=== PATIENT | female | born 2000 | race Caucasian/White ===

== ENCOUNTER → 2020-03-17 11:16 | Outpatient (BNVA) | payer OTHER, SELFPAY | PROVIDERS: Family Provider Nurse Practitioner Family; Visit Provider Nurse Practitioner Family | DX: Z11.59 Encounter for screening for other viral diseases (principal); J06.9 Acute upper respiratory infection, unspecified | CPT/HCPCS: 87635 ==

== ENCOUNTER → 2020-12-23 14:28 | Outpatient (BNVA) | payer OTHER, SELFPAY | PROVIDERS: Family Provider Nurse Practitioner Family; Visit Provider Registered Nurse | DX: Z02.1 Encounter for pre-employment examination (principal) | CPT/HCPCS: 80307 ==

== ENCOUNTER → 2021-07-23 11:20 | Outpatient (BNVA) | payer MEDICAID, SELFPAY | PROVIDERS: Family Provider Nurse Practitioner Family; Visit Provider Obstetrics & Gynecology | DX: Z34.90 Encounter for supervision of normal pregnancy, unspecified, unspecified trimester (principal) | CPT/HCPCS: 80307; 82950; 84315; 84443; 85025; 86592; 86762; 86803; 86850; 86900; 87086; 87340; 87491; 87591; 87661; 88175 ==

== ENCOUNTER → 2021-09-17 14:31 | Outpatient (BNVA) | payer BC, MEDICAID, SELFPAY | PROVIDERS: Family Provider Nurse Practitioner Family; Visit Provider Obstetrics & Gynecology | DX: O09.899 Supervision of other high risk pregnancies, unspecified trimester (principal) | CPT/HCPCS: 81000 ==

== ENCOUNTER → 2021-10-16 13:31 | Outpatient (BNVA) | payer BC, MEDICAID, SELFPAY | PROVIDERS: Family Provider Nurse Practitioner Family; Visit Provider Obstetrics & Gynecology | DX: O09.899 Supervision of other high risk pregnancies, unspecified trimester (principal) | CPT/HCPCS: 81000 ==

== ENCOUNTER → 2021-11-12 14:40 | Outpatient (BNVA) | payer BC, MEDICAID, SELFPAY | PROVIDERS: Family Provider Nurse Practitioner Family; Visit Provider Obstetrics & Gynecology | DX: O09.899 Supervision of other high risk pregnancies, unspecified trimester (principal); Z20.2 Contact with and (suspected) exposure to infections with a predominantly sexual mode of transmission; Z3A.00 Weeks of gestation of pregnancy not specified | CPT/HCPCS: 81000; 87491; 87591 ==

== ENCOUNTER → 2021-12-07 16:15 | Outpatient (BNVA) | payer BC, MEDICAID, SELFPAY | PROVIDERS: Family Provider Nurse Practitioner Family; Visit Provider Obstetrics & Gynecology | DX: O09.899 Supervision of other high risk pregnancies, unspecified trimester (principal) | CPT/HCPCS: 81000; 82950; 85025 ==

== ENCOUNTER → 2021-12-10 08:46 | Outpatient (BNVA) | payer BC, MEDICAID, SELFPAY | PROVIDERS: Family Provider Nurse Practitioner Family; Visit Provider Obstetrics & Gynecology | DX: O09.899 Supervision of other high risk pregnancies, unspecified trimester (principal) | CPT/HCPCS: 82951; 82952 ==

== ENCOUNTER → 2021-12-25 14:54 | Outpatient (BNVA) | payer BC, MEDICAID, SELFPAY | PROVIDERS: Family Provider Nurse Practitioner Family; Visit Provider Obstetrics & Gynecology | DX: O09.899 Supervision of other high risk pregnancies, unspecified trimester (principal); Z3A.00 Weeks of gestation of pregnancy not specified | CPT/HCPCS: 81000 ==

== ENCOUNTER → 2022-01-04 13:27 | Outpatient (BNVA) | payer BC, MEDICAID, SELFPAY | PROVIDERS: Family Provider Nurse Practitioner Family; Visit Provider Obstetrics & Gynecology | DX: O09.899 Supervision of other high risk pregnancies, unspecified trimester (principal); Z3A.00 Weeks of gestation of pregnancy not specified | CPT/HCPCS: 81000 ==

== ENCOUNTER → 2022-01-18 11:17 | Outpatient (BNVA) | payer BC, MEDICAID, SELFPAY | PROVIDERS: Family Provider Nurse Practitioner Family; Visit Provider Obstetrics & Gynecology | DX: O09.899 Supervision of other high risk pregnancies, unspecified trimester (principal); Z3A.00 Weeks of gestation of pregnancy not specified | CPT/HCPCS: 81000; 85025 ==

== ENCOUNTER → 2022-02-01 11:00 | Outpatient (BNVA) | payer BC, MEDICAID, SELFPAY | PROVIDERS: Family Provider Nurse Practitioner Family; Visit Provider Obstetrics & Gynecology | DX: O09.899 Supervision of other high risk pregnancies, unspecified trimester (principal); Z3A.00 Weeks of gestation of pregnancy not specified | CPT/HCPCS: 81000; 87081 ==

== ENCOUNTER 2022-02-05 21:45 | Outpatient (CLI) | payer BC, MEDICAID, SELFPAY ==
[2022-02-05] VITALS (21 sets, daily range): BP systolic 115–139; BP diastolic 58–71; PULSE 96–118; RESP 16; TEMP 36.7–36.8; O2SAT 97–99; BMI 41.4
[2022-02-05 22:36] LABS: Nitrazine Paper, PH Negative
[2022-02-05 22:37] LABS: Basophils % 0.2 %; Eosinophils # 0.1 10^3/uL (0.0-0.8); Eosinophils % 0.8 %; Hematocrit 30.8 % (37.0-47.0); Lymphocytes # 2.1 10^3/uL (0.8-4.8); Lymphocytes % 23.9 %; Mean Corpuscular HGB Conc 32.5 g/dL (30.0-36.0); Mean Corpuscular Hemoglobin 28.6 pg (28.0-34.0); Mean Platelet Volume 12.3 fL (7.4-10.4); Monocytes # 0.7 10^3/uL (0.2-0.9); Monocytes % 7.5 %; Neutrophils # 5.97 10^3/uL (1.8-7.7); Nucleated Red Blood Cells % 0 %; Platelet Count 188 10^3/cmm (130-400); Red Cell Distribution Width 15.3 % (12.1-15.1); White Blood Count 8.9 10^3/uL (4.0-10.0)
[2022-02-05 22:56] LABS: Urine Creatinine 326 mg/dL (28-217)
[2022-02-05 23:01] LABS: Alanine Aminotransferase 9 U/L (0-33); Albumin Level 3.2 g/dL (3.5-5.2); Alkaline Phosphatase 136 U/L (35-105); Anion Gap 17.2 (5-19); Aspartate Amino Transferase 13 U/L (0-32); Blood Urea Nitrogen 9 mg/dL (6-20); Calcium 8.5 mg/dL (8.5-10.5); Carbon Dioxide 20 mmol/L (22-29); Chloride 108 mmol/L (98-107); Globulin 2.6 g/dL (1.3-4.6); Glomerular Filtration Rate 103.7 mL/min (90-130); Glucose 98 mg/dL (65-115); Osmolality Calculated 291 mOsm/kg (285-295); Potassium 4.2 mmol/L (3.5-5.1); Sodium 141 mmol/L (136-145); Total Bilirubin 0.3 mg/dL (0.15-1.2); Total Protein 5.8 g/dL (6.6-8.7); Uric Acid 4.2 mg/dL (2.4-5.7)
[2022-02-05 23:09] LABS: UPRO/UCREAT Ratio 0.09 mg/mg CR; Urine Protein Random 30 mg/dL
[2022-02-05 23:21] LABS: Add Urine Microscopic? YES; Bilirubin Urine Neg (Negative); Blood Urine Neg (Negative); Glucose Urine UA Norm (Normal); Ketones Urine 2+ (Negative); Leukocyte Esterase Urine 2+ (Negative); Nitrate Urine Negative (Negative); Protein Urine Neg (Negative); Specific Gravity, Urine 1.025 (1.005-1.030); Urine Appearance SL Hazy (CLEAR); Urine Color Yellow (Yellow); Urobilinogen Urine 1 mg/dL (Negative); pH Urine 6 (5-7)
[2022-02-05 23:22] LABS: Add Urine Culture? No; Bacteria Urine 1+ /hpf; Calcium Oxalate Crystals Urine 15-25 /hpf; Mucus Urine 1+ /hpf; RBC Urine 0-4 /hpf (0-2); Squamous Epithelial Cell Urine 15-25 /hpf (0-5); WBC Urine 15-25 /hpf (0-5)
== END 2022-02-05 23:39 | disposition home or self-care (01) ==
LOC: OPOB 21:49 → OBGYN 21:55
PROVIDERS: Family Provider Nurse Practitioner Family; Visit Provider Obstetrics & Gynecology
DX: O26.899 Other specified pregnancy related conditions, unspecified trimester (principal); Z3A.00 Weeks of gestation of pregnancy not specified; N89.8 Other specified noninflammatory disorders of vagina
CPT/HCPCS: 36415; 59025; 80053; 81001; 82570; 83986; 84156; 84550; 85025; 99211

== ENCOUNTER 2022-02-08 11:20 | Outpatient (CLI) | payer BC, MEDICAID, SELFPAY ==
[2022-02-08 11:36] VITALS: RESP 18
[2022-02-08 11:37] VITALS: BMI 41.2
[2022-02-08 11:40] VITALS: BP 138/85; PULSE 110
[2022-02-08 11:51] LABS: Actim Prom Negative
[2022-02-08 12:01] VITALS: BP 129/76; PULSE 103
[2022-02-08 12:21] VITALS: BP 132/86; PULSE 100
[2022-02-08 12:40] VITALS: BP 132/86; PULSE 100
== END 2022-02-08 12:40 | disposition home or self-care (01) ==
LOC: OPOB 11:25 → OBGYN 11:26
PROVIDERS: Family Provider Nurse Practitioner Family; Visit Provider Obstetrics & Gynecology
DX: O26.899 Other specified pregnancy related conditions, unspecified trimester (principal); Z3A.00 Weeks of gestation of pregnancy not specified; N89.8 Other specified noninflammatory disorders of vagina
CPT/HCPCS: 59025; 81000; 84112; 99211

== ENCOUNTER → 2022-02-18 08:45 | Outpatient (BNVA) | payer BC, MEDICAID, SELFPAY | PROVIDERS: Family Provider Nurse Practitioner Family; Visit Provider Obstetrics & Gynecology | DX: O09.899 Supervision of other high risk pregnancies, unspecified trimester (principal); Z3A.00 Weeks of gestation of pregnancy not specified | CPT/HCPCS: 81000 ==

== ENCOUNTER 2022-02-24 07:36 | Inpatient (IN) | payer BC, MEDICAID, SELFPAY ==
[2022-02-23] VITALS (49 sets, daily range): BP systolic 121–169; BP diastolic 61–101; PULSE 78–112; RESP 16; TEMP 35.8; O2SAT 98–100; BMI 41.2
[2022-02-23] MEDS: miSOPROStol 100 mcg tablet 25 MCG VAGINAL (16:17)
[2022-02-23 16:49] LABS: Basophils % 0.2 %; Eosinophils # 0.1 10^3/uL (0.0-0.8); Eosinophils % 0.9 %; Hematocrit 32.9 % (37.0-47.0); Hemoglobin 10.6 g/dL (11.5-15.3); Lymphocytes # 2.7 10^3/uL (0.8-4.8); Lymphocytes % 32.6 %; Mean Corpuscular HGB Conc 32.2 g/dL (30.0-36.0); Mean Corpuscular Hemoglobin 28.7 pg (28.0-34.0); Mean Corpuscular Volume 89.2 fl (81-99); Mean Platelet Volume 13.4 fL (7.4-10.4); Monocytes # 0.6 10^3/uL (0.2-0.9); Monocytes % 6.9 %; Neutrophils # 4.84 10^3/uL (1.8-7.7); Neutrophils % 58.9 %; Nucleated Red Blood Cells % 0 %; Platelet Count 199 10^3/cmm (130-400); Red Blood Count 3.69 10^6/uL (4.1-5.3); Red Cell Distribution Width 14.8 % (12.1-15.1); White Blood Count 8.2 10^3/uL (4.0-10.0)
--- NOTE | 2022-02-23 18:43 | P.ANESASSM_ITS ---
Pre-Anesthetic Assessment Height/Weight: Height 1.65 m Weight 112.491 kg Temp Pulse Resp BP O2 Del Method 96.5 F L 83 16 139/77 02/23/22 15:58 02/23/22 18:35 02/23/22 15:58 02/23/22 18:35 02/23/22 15:12 Familial anesthetic complications: None Was Beta Ronal taken within 24 hours: N/A Was Clonidine taken within 24 hours: N/A Social No alcohol and No tobacco Exam alert, oriented x 3, clear to auscultation bilaterally and regular rate & rhythm Airway Submandibular: within normal limits Cervical ROM: within normal limits Mallampati: Class II Dentition: full CV/HEM Anemia Metabolic Morbid Obesity Anesthetic Plan ASA status: 2 Anesthesia: Regional (specify below) (Labor epidural) Medications/Allergies Home Medications Medication Instructions Recorded Confirmed Last Taken Type PNV 153-FA 400 mcg-om3 35 mg-dha 1 tab PO DAILY 07/23/21 02/18/22 02/03/22 History 25 mg-epa 5 mg-fish oil chew tablet ( Gummies) ferrous sulfate 325 mg (65 mg 325 mg PO DAILY 01/04/22 02/18/22 02/03/22 History iron) tablet Allergies Allergy/AdvReac Type Severity Reaction Status Date / Time No Known Allergies Allergy Verified 02/18/22 08:33 [facility] Anesthesia Medical History History of gestational hypertension Family History Mother Hypertension Denies family history of Diabetes CAD (coronary artery disease) Clotting disorder Hyperlipidemia Chronic kidney disease (CKD) Bleeding disorder Cancer Thyroid disease Stroke Social History Smoking and tobacco status: never smoked Female Reproductive History Date of last menstrual period: 05/05/21 : 2 Data Anesthesia : 02/23/22 15:40 Short CBC 02/23/22 Range/Units 15:40 WBC 8.2 (4.0-10.0) 10^3/uL Hgb 10.6 L (11.5-15.3) g/dL Hct 32.9 L (37.0-47.0) % MCV 89.2 (81-99) fl Plt Count 199 (130-400) 10^3/cmm Neut % (Auto) 58.9 % Neut # (Auto) 4.84 (1.8-7.7) 10^3/uL Cardiac Studies: No Data to Display
[2022-02-23] MEDS: lactated ringers 1,000 ML 999 ML IV ×2 (21:31→22:31)
--- NOTE | 2022-02-23 23:15 | ANES.PROC ---
Anesthesia Procedures Procedure/Date: 02/23/22 Epidural: Time Out Performed: Yes Consents Signed: Procedure Consent Consent: requested by attending/covering physician, from patient, risks and benefits reviewed and patient agrees to proceed Lumbar Level: L2-L3 Epidural position: sitting Epidural procedure: sterile prep of area, 1% lidocaine to numb the area, 18 g needle, neg for paresthesia, test dose given (3cc of 2% lidocaine with 1:200,000 epi), 0.2% Ropivacaine bolus ml (4ml bolus + 100mcg fentanyl), placed PCEA (loss of resistance at 7cm, catheter placed at 13cm at skin), no systemic response, sterile dressing applied, L.U.D. no apparent complications and 0.2% Ropiavacaine @ mls/hr (13cc/hr) Additional Comments: Patient tolerated procedure well.
[2022-02-24] VITALS (64 sets, daily range): BP systolic 116–152; BP diastolic 61–93; PULSE 74–113; RESP 17–18; TEMP 36.2–37.1
[2022-02-24] MEDS: dextrose 5%-lactated ringers 1,000 ML 125 ML IV (08:16)
--- NOTE | 2022-02-24 10:54 | PM.OPHPUD ---
Labor & Delivery H&P Update Date of Procedure: February 24, 2022 Date H&P Performed: 02/18/22 H&P update information: I have reviewed H&P completed within last 30 days, I have examined patient prior to procedure and No changes to prior documentation Changes to previous documentation: The patient is here as an induction of labor at term. Admission Diagnosis: iup@ 39 weeks 2 days
--- NOTE | 2022-02-24 11:21 | P.PCNOB_ITS ---
Delivery Note: Date of delivery: February 24, 2022 Pre-delivery diagnoses: iup@39w2d Post-delivery diagnoses: same-delivered Procedure: Delivering Physician: Juaquin Estimated blood loss (mL): 10 Findings: Term female in the DELORIS presentation with a single nuchal cord reduced at the perineum Pre-Delivery Course: The patient was admitted for induction at term. She received a dose of cytotec and began to have irregular, painful contractions. Pitocin was started and she received an epidural for pain control. She had AROM at 8 cm dilation. She had complete cervical dilation and began pushing. Delivery: The patient had complete cervical dilation and began to push. The head delivered in the DELORIS position over an intact perineum under epidural anesthesia. The nose and mouth were bulb suctioned. A single nuchal cord was reduced at the perineum. The shoulders and body delivered atraumatically. The baby was placed onto the mother's abdomen. The cord was clamped and cut. The placenta delivered spontaneously. It was inspected and found to be intact. Inspection of the perineum revealed no repair was required. Estimated blood loss 10 mL. Apgars on baby were 8 at 1 minute and 9 at 5 minutes. Weight of baby is 7 pounds 0 ounces. Mother and baby were stable post delivery. 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
[2022-02-24] MEDS: HYDROcodone-acetaminophen 5-325 mg Tablet PO ×2 (12:55→18:41)
--- NOTE | 2022-02-24 13:58 | ANE.PACU2 ---
Inpatient post-anesthesia follow up: Airway intact: Yes Vital signs: Temperature 98.7 F Pulse Rate 102 Respiratory Rate 18 Blood Pressure 132/71 Pulse Oximetry 100 Oxygen Delivery Me thod Room Air Oxygen Flow Rate Fraction of Inspir ed Oxygen Hydration adequate: Yes Nausea and vomiting: No Pain level: 1 Mental status: Baseline
--- NOTE | 2022-02-24 13:58 | ANES.PREANE2 ---
Pre-Anesthetic Assessment Height/Weight: Height 1.65 m Weight 112.491 kg Temp Pulse Resp BP Pulse Ox O2 Del Method 98.7 F 102 H 18 132/71 100 02/24/22 11:02 02/24/22 13:27 02/24/22 11:02 02/24/22 13:27 02/23/22 23:29 02/23/22 15:12 Preop Diagnosis: post bilateral tubal ligation Familial anesthetic complications: None Was Beta Ronal taken within 24 hours: N/A Was Clonidine taken within 24 hours: N/A Last intake: No solids since 02/23/22, clears stopped at 1200 on 02/24/22 Social No alcohol and No tobacco Exam alert, oriented x 3, clear to auscultation bilaterally and regular rate & rhythm Airway Submandibular: within normal limits Cervical ROM: within normal limits Mallampati: Class I Dentition: full History/ROS No significant complaints Pulmonary None reported CV/HEM None reported None reported Hepatic None reported GI None reported Metabolic Morbid Obesity Musc/skel None reported Neuropsych None reported Anesthetic Plan ASA status: 1 Anesthesia: Anesthesia Evaluation and Regional (specify below) (Spinal) Other: We discussed risk and benefits of spinal anesthesia including infection, paralysis/catastrophic nerve injury, back bruising/pain, PDPH, conversion to general in case of spinal failure, intraoperative and PONV, life threatening allergic reaction, post operative ICU admission requiring prolonged intubation, stroke, heart attack. Risk of > 500 ml blood loss (7ml/kg in children): No Medications/Allergies Home Medications Medication Instructions Recorded Confirmed Last Taken Type PNV 153-FA 400 mcg-om3 35 mg-dha 1 tab PO DAILY 07/23/21 02/18/22 02/03/22 History 25 mg-epa 5 mg-fish oil chew tablet ( Gummies) ferrous sulfate 325 mg (65 mg 325 mg PO DAILY 01/04/22 02/18/22 02/03/22 History iron) tablet Allergies Allergy/AdvReac Type Severity Reaction Status Date / Time No Known Allergies Allergy Verified 02/18/22 08:33 Current Medications Generic Name Dose Route Start Last Admin Trade Name Freq PRN Reason Stop Dose Admin Hydrocodone Bitart/Acetaminophen 1 - 2 tab 02/24/22 11:02 02/24/22 12:55 Hydrocodone-Acetaminophen 5-325 Mg Tablet PO 1 tab Q6H PRN Administration MODERATE TO SEVERE PAIN Dextrose/Lactated Ringer's 1,000 mls @ 125 mls/hr 02/23/22 16:00 02/24/22 13:35 Dextrose 5%-Lactated Ringers IV Infused .Q8H COLTON Infusion PFSH Anesthesia Medical History History of gestational hypertension Family History Mother Hypertension Denies family history of Diabetes CAD (coronary artery disease) Clotting disorder Hyperlipidemia Chronic kidney disease (CKD) Bleeding disorder Cancer Thyroid disease Stroke Social History Smoking and tobacco status: never smoked Female Reproductive History Date of last menstrual period: 05/05/21 : 2 Data Anesthesia : 02/23/22 15:40 Short CBC 02/23/22 Range/Units 15:40 WBC 8.2 (4.0-10.0) 10^3/uL Hgb 10.6 L (11.5-15.3) g/dL Hct 32.9 L (37.0-47.0) % MCV 89.2 (81-99) fl Plt Count 199 (130-400) 10^3/cmm Neut % (Auto) 58.9 % Neut # (Auto) 4.84 (1.8-7.7) 10^3/uL Cardiac Studies: No Data to Display
--- NOTE | 2022-02-24 14:03 | ANE.PACU2 ---
Inpatient post-anesthesia follow up: Vital signs: Temperature 98.7 F Pulse Rate 102 Respiratory Rate 18 Blood Pressure 132/71 Pulse Oximetry 100 Oxygen Delivery Me thod Room Air Oxygen Flow Rate Fraction of Inspir ed Oxygen
[2022-02-24] MEDS: ibuprofen 800 mg tablet PO ×2 (15:44→21:02)
[2022-02-24] MEDS: docusate sodium 100 mg Capsule PO (18:41)
[2022-02-24 23:26] LABS: Hematocrit 28.8 % (37.0-47.0); Hemoglobin 9.2 g/dL (11.5-15.3); Mean Corpuscular HGB Conc 31.9 g/dL (30.0-36.0); Mean Corpuscular Hemoglobin 28.5 pg (28.0-34.0); Mean Corpuscular Volume 89.2 fl (81-99); Mean Platelet Volume 13.1 fL (7.4-10.4); Platelet Count 165 10^3/cmm (130-400); Red Blood Count 3.23 10^6/uL (4.1-5.3); White Blood Count 12.6 10^3/uL (4.0-10.0)
[2022-02-24 23:30] LABS: Positive M 1
[2022-02-25 05:00] VITALS: BP 105/67; PULSE 82; RESP 16; O2SAT 99
[2022-02-25] MEDS: docusate sodium 100 mg Capsule PO (10:07)
[2022-02-25] MEDS: prenatal vitamin Capsule 1 CAP PO (10:07)
[2022-02-25] MEDS: ibuprofen 800 mg tablet PO (10:07)
--- NOTE | 2022-02-25 11:52 | P.DS_ITS ---
Discharge Providers Date of Admission: 02/24/22 07:36 Date of Discharge: February 25, 2022 Attending Provider at Admission: Gela Reza MD Attending Provider at Discharge: Gela Reza MD Reason for Visit Reason for Visit: induction Hospital Course Hospital Course The patient was admitted for induction at term. She had spontaneous delivery of a term . She did well and was ready for discharge on day #1 Physical Exam Narrative: The patient is doing well. No concerns Const: COMMON NORMALS: no acute distress, patient oriented x3, no limitations, healthy appearing, alert and well nourished GENERAL APPEARANCE: cooperative, comfortable, well kempt and well developed ORIENTATION/CONSCIOUSNESS: Yes awake, Yes oriented to person, Yes oriented to place and Yes oriented to time Resp: COMMON NORMALS: normal respiratory effort EFFORT & INSPECTION: Yes able to speak in complete sentences GI: COMMON NORMALS: Soft to palpation and non-tender PALPATION: Yes Soft to palpation Extremity: COMMON NORMALS: no calf tenderness Neuro: COMMON NORMALS: patient oriented x3 SENSORIUM/ORIENTATION: Yes alert, Yes oriented to person, Yes oriented to place and Yes oriented to time Psych: APPEARANCE: Yes well kempt Urinary Catheter Management: Olivarez: Cath Placed During This Visit: yes, but has since been removed by the nurse Reason for Continuing Indwelling Catheter: Decision to DC Catheter Urinary Catheter Date of Insertion: 02/23/22 Urinary Catheter Time of Insertion: 23:55 Date Urinary Catheter Removed: 02/24/22 Time Urinary Catheter Discontinued: 09:55 Discharge Data Studies Completed and Pending Laboratory Results WBC 12.6 10^3/uL (4.0-10.0) H 02/24/22 23:17 RBC 3.23 10^6/uL (4.1-5.3) L 02/24/22 23:17 Hgb 9.2 g/dL (11.5-15.3) L 02/24/22 23:17 Hct 28.8 % (37.0-47.0) L 02/24/22 23:17 MCV 89.2 fl (81-99) 02/24/22 23:17 MCH 28.5 pg (28.0-34.0) 02/24/22 23:17 MCHC 31.9 g/dL (30.0-36.0) 02/24/22 23:17 RDW 15.0 % (12.1-15.1) 02/24/22 23:17 Plt Count 165 10^3/cmm (130-400) 02/24/22 23:17 MPV 13.1 fL (7.4-10.4) H 02/24/22 23:17 Neut % (Auto) 58.9 % 02/23/22 15:40 Lymph % (Auto) 32.6 % 02/23/22 15:40 [place] % (Auto) 6.9 % 02/23/22 15:40 Eos % (Auto) 0.9 % 02/23/22 15:40 Baso % (Auto) 0.2 % 02/23/22 15:40 Neut # (Auto) 4.84 10^3/uL (1.8-7.7) 02/23/22 15:40 Lymph # (Auto) 2.7 10^3/uL (0.8-4.8) 02/23/22 15:40 [place] # (Auto) 0.6 10^3/uL (0.2-0.9) 02/23/22 15:40 Eos # (Auto) 0.1 10^3/uL (0.0-0.8) 02/23/22 15:40 Baso # (Auto) 0.0 10^3/uL (0.0-0.1) 02/23/22 15:40 Nucleated RBC % (auto) 0 % 02/23/22 15:40 Nucleated RBCs # 0.0 /100WBC 02/23/22 15:40 Vitals Last Vital Signs Temp 98.6 F 02/24/22 16:33 Pulse 82 02/25/22 05:00 Resp 16 02/25/22 05:00 BP 105/67 02/25/22 05:00 Pulse Ox 99 02/25/22 05:00 O2 Del Method 02/25/22 05:00 Discharge Plan Discharge Patient Disposition: Home Condition: Stable Prescriptions: Continued Gummies 400 mcg-35 mg- 25 mg-5 mg tablet,chewable 1 tab PO DAILY ferrous sulfate 325 mg (65 mg iron) tablet 325 mg PO DAILY Discharge Orders: Discharge Order (Routine); Ordered 02/25/22 Ordered By: Gela Reza Referrals: Gela Reza MD [Physician] - 03/15/22 9:00 am Patient Instructions: Depression (DC), Bleeding (DC), Preeclampsia and Eclampsia After Delivery (GEN), Hemorrhage (DC), OB Discharge Report, OB Food/Drug Interaction Guide, OB Care at Home, Opioid Safety, OB Home Care, OB Vaginal Deliveries - [facility] Discharge Attestations Time Spent in Discharge Care*: less than 30 min Quality Metrics Clinical Quality Measures [ No reported AMI, CVA or VTE this stay] Coding Level of Care Code Acute Chg FW DC note
[2022-02-25 14:15] VITALS: BP 134/88; PULSE 94; RESP 16; TEMP 36.6
== END 2022-02-25 14:30 | disposition home or self-care (01) | DRG 807 ==
LOC: OBGYN 07:42 → OPOB 09:38
PROVIDERS: Admitting Provider Obstetrics & Gynecology; Family Provider Nurse Practitioner Family; Visit Provider Obstetrics & Gynecology
DX: O69.81X0 Labor and delivery complicated by cord around neck, without compression, not applicable or unspecified (principal); Z37.0 Single live birth; O99.214 Obesity complicating childbirth; E66.01 Morbid (severe) obesity due to excess calories; O99.02 Anemia complicating childbirth; D64.9 Anemia, unspecified; Z3A.39 39 weeks gestation of pregnancy; Z87.59 Personal history of other complications of pregnancy, childbirth and the puerperium
CPT/HCPCS: 36415; 51702; 59025; 59409; 85025; 85027; J2795; J3010

== ENCOUNTER → 2022-04-13 11:50 | Day surgery (SDC) | payer BC, MEDICAID, SELFPAY ==
[2022-04-12 13:55] VITALS: BMI 36.6
[2022-04-13] VITALS (7 sets, daily range): BP systolic 147–156; BP diastolic 72–97; PULSE 69–88; RESP 12–19; TEMP 36.6; O2SAT 95–100
[2022-04-13 12:13] LABS: OR HCG Qualitative Urine Negative (Negative)
[2022-04-13] MEDS: sodium chloride 0.9% 1,000 ML 30 ML IV (12:40)
[2022-04-13] MEDS: acetaminophen 1,000 MG/100 ML PIGGYBACK 400 MG IV (12:40)
[2022-04-13] MEDS: phenazopyridine 100 mg Tablet 200 MG PO (12:49)
[2022-04-13] MEDS: gabapentin 300 mg Capsule PO (12:49)
[2022-04-13] MEDS: CELEcoxib 200 mg Capsule 400 MG PO (12:49)
[2022-04-13] MEDS: scopolamine 1.5 Patch 1 PATCH TRANSDERMA (12:49)
--- NOTE | 2022-04-13 13:30 | ANES.PREANE2 ---
Pre-Anesthetic Assessment Height/Weight: Height 1.65 m Weight 99.79 kg O2 Del Method 04/13/22 12:51 Preop Diagnosis: post bilateral tubal ligation Operation Date: 04/13/22 13:30 Proposed Procedures p Laparoscopic bilateral salpingectomy 23987,Z30.2(Bilateral) - Gela Reza MD Familial anesthetic complications: None Was Beta Ronal taken within 24 hours: N/A Was Clonidine taken within 24 hours: N/A Last intake: Intake Last Liquid Date 04/12/22 Last Liquid Time 22:00 Last Solid Date 04/12/22 Last Solid Time 21:00 Social No alcohol and No tobacco Exam alert, oriented x 3, clear to auscultation bilaterally and regular rate & rhythm Airway Mallampati: Class I Dentition: full Metabolic Morbid Obesity Anesthetic Plan ASA status: 2 Anesthesia: General Risk of > 500 ml blood loss (7ml/kg in children): No Medications/Allergies Home Medications Medication Instructions Recorded Confirmed Last Taken Type No Known Home Medications 04/09/22 04/09/22 Unknown History Allergies Allergy/AdvReac Type Severity Reaction Status Date / Time No Known Allergies Allergy Verified 04/13/22 12:07 Current Medications Generic Name Dose Route Start Last Admin Trade Name Freq PRN Reason Stop Dose Admin Sodium Chloride 1,000 mls @ 30 mls/hr 04/13/22 12:45 04/13/22 12:40 Sodium Chloride 0.9% IV 30 mls/hr .Q24H COLTON Administration PFSH Anesthesia Medical History History of gestational hypertension Family History Mother Hypertension Denies family history of Diabetes CAD (coronary artery disease) Clotting disorder Hyperlipidemia Chronic kidney disease (CKD) Bleeding disorder Cancer Thyroid disease Stroke Female Reproductive History Date of last menstrual period: 05/05/21 Data Anesthesia Cardiac Studies: No Data to Display
--- NOTE | 2022-04-13 14:39 | W.PM.OPSUD ---
Surgery/Procedure H&P Update DATE OF PROCEDURE: April 13, 2022 DATE H&P PERFORMED: 04/09/22 H&P UPDATE INFORMATION: I have reviewed H&P completed within last 30 days, I have examined patient prior to procedure and No changes to prior documentation PREOP DIAGNOSIS: post bilateral tubal ligation PLANNED PROCEDURE: Operation Date: 04/13/22 13:30 Proposed Procedures p Laparoscopic bilateral salpingectomy 88253,Z30.2(Bilateral) - Gela Reza MD Related Problem List Diagnoses (1) Sterilization consult:
--- NOTE | 2022-04-13 14:47 | W.PM.OPSUD ---
Surgery/Procedure H&P Update DATE OF PROCEDURE: April 13, 2022 DATE H&P PERFORMED: 04/09/22 PREOP DIAGNOSIS: undesired fertility PLANNED PROCEDURE: Operation Date: 04/13/22 13:30 Proposed Procedures p Laparoscopic bilateral salpingectomy 92933,Z30.2(Bilateral) - Gela Reza MD
[2022-04-13] MEDS: ceFAZolin 2,000 MG in sodium chloride 0.9% (plus) 50 ML 100 MG IV (14:59)
--- NOTE | 2022-04-13 16:23 | PM.OP ---
Operative Report Date of procedure: April 13, 2022 Pre-op diagnosis: Preop Diagnosis undesired fertility Post-op diagnosis: same Post-op findings: normal appearing uterus, tubes and ovaries Procedure done: laparoscopic bilateral salpingectomy Specimens removed/disposition: bilateral fallopian tubes to pathology Surgeon: Gela Reza Anesthesia: General Estimated blood loss (mL): 5 IV fluids (mL): 1,000 Urine output (mL): 400 Complications: small perforation on posterior fundus. Hemostatic Findings: 9 week sized uterus, normal appearing tubes and ovaries Procedure: The patient was taken to the operating room where general anesthesia was administered and found to be adequate. She was prepped and draped in the normal sterile fashion in the dorsal lithotomy position in [facility]. A Olivarez catheter was placed. A weighted speculum was placed into the vagina and the anterior lip of the cervix grasped with a single-tooth tenaculum. A [employer] uterine manipulator was placed. The gloves were changed and attention was turned to the laparoscopic portion of the case. A 5 mm infraumbilical incision was made. The 5 mm trocar was placed using the easy view trocar. Intra-abdominal placement was confirmed and CO2 gas was used to insufflate the abdomen. Using direct visualization and illumination of the abdominal wall, two 5 mm incisions were made low and lateral. One on the left and one on the right. The 5mm trochars were then placed under direct visualization. Using the uterine manipulator and the grasper, the fallopian tubes were identified. Using the laparoscopic cautery, the fallopian tube was clamped cauterized and cut. First on the right, then on the left. There was excellent hemostasis post removal of the bilateral tubes. Pictures were taken. All instruments were removed. The abdomen was desufflated. The incisions were closed with 4-0 Vicryl. 10 ml of 1/2% bupivicaine was used around the incisions. The patient tolerated the procedure well. Sponge lap and needle counts were correct x3. She was taken to the recovery room in stable condition.
--- NOTE | 2022-04-13 16:29 | PM.DCS ---
Discharge Providers Date of Admission: 04/13/22 Date of Discharge: April 13, 2022 Attending Provider at Discharge: Gela Reza MD Primary Care Provider: Gela Reza MD Diagnoses at Discharge Discharge Diagnosis (1) Sterilization consult: Status: Acute Hospital Course Hospital Course The patient was admitted for surgery. She did well postoperatively and was ready for discharge Physical Exam Urinary Catheter Management: Oilvarez: Cath Placed During This Visit: yes, but has since been removed by the nurse Urinary Catheter Date of Insertion: 04/13/22 Urinary Catheter Time of Insertion: 15:30 Date Urinary Catheter Removed: 04/13/22 Time Urinary Catheter Discontinued: 16:10 Discharge Data Studies Completed and Pending Pending at discharge Category Date Time Status Urine Culture Routine Lab 04/13/22 15:31 Received Laboratory Results Urine HCG, Qual Negative (Negative) 04/13/22 12:12 Vitals Last Vital Signs O2 Del Method 04/13/22 12:51 Discharge Plan Discharge Patient Disposition: Home Condition: Stable Prescriptions: New hydrocodone-acetaminophen 5-325 mg tablet 1 tab PO Q4H Qty: 30 0RF Discharge Orders: Discharge Order (Routine); Ordered 04/13/22 Ordered By: Gela Reza Discharge Attestations Time Spent in Discharge Care*: less than 30 min Quality Metrics Clinical Quality Measures [ No reported AMI, CVA or VTE this stay] Coding Level of Care Code Acute Chg FW DC note Diagnoses Sterilization consult Z30.09
--- NOTE | 2022-04-13 16:51 | SUR.PHASEI ---
1632 PT TO PACU 5 PT AWAKES TO VOICE, WITH GOOD RESP EFFORT, MONITOR SR WITH NO ECTOPY, IV TO LT AC #20 WITH NS 950 ML UP AT KVO RATE, ABDOMEN SOFT WITH 3 SITE WITH SKIN GLUE, MIRIAM PAD WITH SMALL AMT RED DRAINAGE NOTED SCDS ON BILAT.ID BRACELET TO RT WRIST PT ID'D WITH 2 IDENTIFIERS
[2022-04-13] MEDS: HYDROcodone-acetaminophen 5-325 mg Tablet 1 TAB PO (17:36)
== END | disposition home or self-care (01) ==
PROVIDERS: Anesthesiology; PCP Obstetrics & Gynecology; Visit Provider Obstetrics & Gynecology
PROC: (CPT 58661; principal; 2022-04-13 13:20)
DX: Z30.2 Encounter for sterilization (principal)
CPT/HCPCS: 58661; 81025; 84703; 87086; 88302; J0131; J0690; J1100; J1885; J2250; J2405; J2704; J3010; J3490; J7030

== ENCOUNTER → 2022-04-27 14:50 | Outpatient (BNVA) | payer BC, MEDICAID, SELFPAY | PROVIDERS: PCP Registered Nurse; Visit Provider Registered Nurse | DX: R68.89 Other general symptoms and signs (principal); J10.1 Influenza due to other identified influenza virus with other respiratory manifestations | CPT/HCPCS: 87400 ==

== ENCOUNTER → 2022-10-29 09:13 | Outpatient (BNVA) | payer BC, MEDICAID, SELFPAY | PROVIDERS: PCP Registered Nurse; Visit Provider Nurse Practitioner | DX: D64.9 Anemia, unspecified (principal); Z13.6 Encounter for screening for cardiovascular disorders | CPT/HCPCS: 80053; 80061; 84443; 85025 ==